=== PATIENT | female | born 1975 | race Caucasian/White ===

== ENCOUNTER 2019-09-01 01:58 | Emergency (ER) | payer SELFPAY ==
[2019-09-01 03:53] LABS: Absolute Lymphocytes (CBC) 1.2 K/uL (0.7-4.9); Basophils % 0.4 % (0-1.3); Hematocrit 42.4 % (36.0-45.0); Lymphocytes % 15.3 % (15.3-44.8); MPV 8.2 fL (7.6-11.3); RBC Red Blood Cell Count 5.06 M/uL (3.86-4.86)
[2019-09-01] MEDS ORDERED: NA CHLORIDE 0.9% 1,000 ML ONE (03:54)
[2019-09-01] MEDS ORDERED: DIAZEPAM 10 MG/2 ML INJ SYRINGE ONE (03:54)
[2019-09-01] MEDS ORDERED: ONDANSETRON 4 MG/2 ML VIAL ONE (03:54)
[2019-09-01] MEDS ORDERED: MAGNESIUM SULFATE 1 gm IVPB 1 GM/100 ML BAG IV ONE (03:54)
[2019-09-01 04:09] LABS: Albumin 4.1 g/dL (3.4-5.0); Bilirubin Total 0.3 mg/dL (0.2-1.0); Potassium 3.3 mmol/L (3.5-5.1); Protein, Total 8.3 g/dL (6.4-8.2)
--- NOTE | 2019-09-01 04:24 | EDPHYS ---
Physician Documentation [facility] Name: Judy Oquendo Age: 44 yrs Sex: Female : 1975 Arrival Date: 09/01/2019 Time: 01:59 Bed 16 Private MD: ED Physician Stephanie Danielle HPI: 08/31 03:46 This 44 yrs old Female presents to ER via EMS with complaints of ma2 Nausea/Vomiting. 03:46 The patient presents to the emergency department with nausea, vomiting. Onset: The ma2 symptoms/episode began/occurred gradually, 2 day(s) ago. Associated signs and symptoms: Pertinent negatives: belching, diarrhea, flatulence, hematuria. Severity of symptoms: At their worst the symptoms were. The patient has not experienced similar symptoms in the past, The patient has experienced similar episodes in the past. PRODUCTION ROUSTABOUT: 03:05 LMP 08/03/2019 lp1 Historical: - Allergies: 03:05 No Known Allergies; lp1 - Home Meds: 03:05 None [Active]; lp1 - PMHx: 03:05 Depression; Anxiety; lp1 - PSHx: 03:05 Appendectomy; lp1 - Immunization history:: Adult Immunizations up to date. - Social history:: Smoking status: Patient reports the use of cigarette tobacco products, denies chronic smoking, but will smoke occasionally, Patient/guardian denies using alcohol, street drugs, The patient lives with family. - Family history:: not pertinent. ROS: 03:46 Constitutional: Negative for fever, chills, and weight loss. ma2 03:46 All other systems are negative. Exam: 03:46 Constitutional: This is a well developed, well nourished patient who is awake, alert, ma2 and in no acute distress. Chest/axilla: Normal chest wall appearance and motion. Nontender with no deformity. No lesions are appreciated. Cardiovascular: Regular rate and rhythm with a normal S1 and S2. No gallops, murmurs, or rubs. Normal PMI, no JVD. No pulse deficits. Respiratory: Lungs have equal breath sounds bilaterally, clear to auscultation and percussion. No rales, rhonchi or wheezes noted. No increased work of breathing, no retractions or nasal flaring. Abdomen/GI: Soft, non-tender, with normal bowel sounds. No distension or tympany. No guarding or rebound. No evidence of tenderness throughout. Neuro: Awake and alert, GCS 15, oriented to person, place, time, and situation. Cranial nerves II-XII grossly intact. Motor strength 5/5 in all extremities. Sensory grossly intact. Cerebellar exam normal. Normal gait. Vital Signs: 03:01 BP 120 / 94; Pulse 67; Resp 18; Temp 98.5(O); Pulse Ox 99% on R/A; Weight 56.7 kg (R); lp1 Height 5 ft. 5 in. (165.10 cm); Pain 9/10; 04:00 BP 120 / 96; Pulse 70; Resp 18; Pulse Ox 96% on R/A; wh 05:00 BP 125 / 93; Pulse 67; Resp 16; Pulse Ox 100% on R/A; wh 06:15 BP 106 / 84; Pulse 76; Resp 16; Pulse Ox 98% ; wh 10:30 BP 117 / 79; Pulse 74; Resp 16; Pulse Ox 100% on R/A; rb1 03:01 Body Mass Index 20.80 (56.70 kg, 165.10 cm) lp1 MDM: 03:06 Patient medically screened. ma2 03:25 ED course: no experience aware shows no drug seeking hx . ma2 03:46 Differential diagnosis: gastritis, appendicitis, viral gastroenteritis, gastroenteritis.ma2 04:24 Data reviewed: vital signs, nurses notes, shelter records, diagnostic data from [facility] outside facility. Counseling: I had a detailed discussion with the patient and/or guardian regarding: the historical points, exam findings, and any diagnostic results supporting the discharge/admit diagnosis, the presence of at least one elevated blood pressure reading (>120/80) during this emergency department visit, radiology results, the need for outpatient follow up. Medical screen evaluation completed. EMTALA emergency medical condition absent. Response to treatment: the patient's symptoms have markedly improved after treatment. 08/31 03:24 Order name: CMP; Complete Time: 04:18 ma2 08/31 03:24 Order name: CBC with Diff; Complete Time: 03:50 ma2 08/31 03:47 Order name: Lipase; Complete Time: 04:18 ma2 08/31 07:06 Order name: Diet Regular; Complete Time: 07:06 lp1 Administered Medications: 03:51 Drug: NS 0.9% 1000 ml Route: IV; Rate: 1 bolus; Site: left forearm; 05:02 Follow up: Response: No adverse reaction; IV Status: Completed infusion 03:53 Drug: Magnesium Sulfate 1 grams Route: IVPB; Infused Over: 1 hrs; Site: left forearm; 05:02 Follow up: Response: No adverse reaction; IV Status: Completed infusion 03:55 Drug: Valium 10 mg Route: IVP; Site: left forearm; 05:02 Follow up: Response: No adverse reaction; Marked relief of symptoms; RASS: Alert and Calm (0) 03:57 Drug: Zofran (Ondansetron) 4 mg Route: IVP; Site: left forearm; 05:01 Follow up: Response: No adverse reaction; Nausea is decreased Disposition: 09/01/19 04:24 Discharged to Home. Impression: Nausea and vomiting. - Condition is Stable. - Discharge Instructions: Nausea and Vomiting, Adult, [id number]. - Prescriptions for Valium 10 mg Oral Tablet - take 1 tablet by ORAL route every 8 hours As needed; 6 tablet. Zofran 4 mg Oral Tablet - take 1 tablet by ORAL route every 12 hours As needed; 20 tablet. - Medication Reconciliation Form, Thank You Letter, Antibiotic Education, Prescription Opioid Use form. - Follow up: Private Physician; When: Tomorrow; Reason: Continuance of care. Signatures: Dispatcher [employer] EDMS Nazia Brink RN RN lp1 Jenae Sanabria RN RN rb1 Mary Rg Stephanie Danielle MD MD ma2 Corrections: (The following items were deleted from the chart) 10:57 04:24 09/01/2019 04:24 Discharged to Home. Impression: Nausea and vomiting. Condition rb1 is Stable. Prescriptions for Valium 10 mg Oral Tablet - take 1 tablet by ORAL route every 8 hours As needed; 6 tablet, Zofran 4 mg Oral Tablet - take 1 tablet by ORAL route every 12 hours As needed; 20 tablet. and Forms are Medication Reconciliation Form, Thank You Letter, Antibiotic Education, Prescription Opioid Use. Follow up: Private Physician; When: Tomorrow; Reason: Continuance of care. ma2
--- NOTE | 2019-09-01 04:24 | ER ---
Nurse's Notes [facility] Name: Judy Oquendo Age: 44 yrs Sex: Female : 1975 Arrival Date: 09/01/2019 Time: 01:59 Bed 16 Private MD: Diagnosis: Nausea and vomiting Presentation: 08/31 03:01 Chief complaint: EMS states: Called for patient feeling like she is detoxing; Complaint lp1 of N/V, chills, body aches, headache, unable to sleep; States taking Klonopin TID at home, ran out 3 days ago. Coronavirus screen: The patient has NOT traveled to a country currently being monitored by the [facility] within the last 14 days. The patient has NOT had contact with any known and/or suspected case of coronavirus. Ebola Screen: No symptoms or risks identified at this time. Initial Sepsis Screen: Does the patient meet any 2 criteria? No. Patient's initial sepsis screen is negative. Does the patient have a suspected source of infection? No. Patient's initial sepsis screen is negative. Risk Assessment: Do you want to hurt yourself or someone else? Patient reports no desire to harm self or others. 03:01 Method Of Arrival: EMS: [facility] lp1 03:01 Acuity: LESLIE 3 lp1 03:02 Onset of symptoms is unknown. LOCKST[employer]EV[employer]KER: 03:05 LMP 08/03/2019 lp1 Historical: - Allergies: 03:05 No Known Allergies; lp1 - Home Meds: 03:05 None [Active]; lp1 - PMHx: 03:05 Depression; Anxiety; lp1 - PSHx: 03:05 Appendectomy; lp1 - Immunization history:: Adult Immunizations up to date. - Social history:: Smoking status: Patient reports the use of cigarette tobacco products, denies chronic smoking, but will smoke occasionally, Patient/guardian denies using alcohol, street drugs, The patient lives with family. - Family history:: not pertinent. Screenin:05 Abuse screen: Denies threats or abuse. Denies injuries from another. Nutritional lp1 screening: No deficits noted. Tuberculosis screening: No symptoms or risk factors identified. Fall Risk None identified. Assessment: 03:00 General: Appears in no apparent distress. Behavior is calm, cooperative, appropriate wh for age. Pain: Denies pain. Neuro: Level of Consciousness is awake, alert, obeys commands, Oriented to person, place, time, situation, Appropriate for age. Cardiovascular: Heart tones S1 S2. Respiratory: Airway is patent Respiratory effort is even, unlabored, Respiratory pattern is regular, symmetrical, Breath sounds are clear bilaterally. GI: Abdomen is flat, non-distended, Bowel sounds present X 4 quads. Abd is soft and non tender X 4 quads. Reports nausea, vomiting. : No signs and/or symptoms were reported regarding the genitourinary system. EENT: No signs and/or symptoms were reported regarding the EENT system. Derm: Skin is intact, is healthy with good turgor, Skin is pink, warm \T\ dry. normal. Musculoskeletal: Circulation, motion, and sensation intact. 04:00 Reassessment: Patient appears in no apparent distress at this time. No changes from previously documented assessment. Patient and/or family updated on plan of care and expected duration. Pain level reassessed. Patient is alert, oriented x 3, equal unlabored respirations, skin warm/dry/pink. Patient states feeling better. Patient states symptoms have improved. 04:58 Reassessment: Patient appears in no apparent distress at this time. No changes from previously documented assessment. Patient and/or family updated on plan of care and expected duration. Pain level reassessed. Patient is alert, oriented x 3, equal unlabored respirations, skin warm/dry/pink. Pt still little bit drowsy, notified provider instructed to keep the Pt sleeping for a while then DC later Patient states feeling better. Patient states symptoms have improved. 06:10 Reassessment: Patient appears in no apparent distress at this time. No changes from previously documented assessment. Patient and/or family updated on plan of care and expected duration. Pain level reassessed. Patient is alert, oriented x 3, equal unlabored respirations, skin warm/dry/pink. Pt still very drowsy, VSS, Pt easily awakens, states she hasn't slept in three days, notified charge nurse. Pt will be DC once more awake, provider notified. 07:00 Reassessment: Patient appears in no apparent distress at this time. Pt. is resting with rb1 eyes closed, respirations even, unlabored. Call light within reach. 07:28 Reassessment: Ambulated pt. in the hallway, gait is unsteady and she is drowsy. will rb1 continue to monitor until the pt is more alert. 08:22 Reassessment: Pt. was given a breakfast tray, she drank some of her juice, but is still rb1 very drowsy. will continue to monitor. 09:17 Reassessment: Patient appears in no apparent distress at this time. Discharge pending rb1 due to the pt. being too drowsy to be discharged. She has nobody to call for transportation home. 10:17 Reassessment: Patient appears in no apparent distress at this time. Patient and/or rb1 family updated on plan of care and expected duration. Pain level reassessed. Patient is alert, oriented x 3, equal unlabored respirations, skin warm/dry/pink. Patient denies pain at this time. 10:45 Reassessment: Patient appears in no apparent distress at this time. Pt. is more alert rb1 and transportation has been called. Vital Signs: 03:01 BP 120 / 94; Pulse 67; Resp 18; Temp 98.5(O); Pulse Ox 99% on R/A; Weight 56.7 kg (R); lp1 Height 5 ft. 5 in. (165.10 cm); Pain 9/10; 04:00 BP 120 / 96; Pulse 70; Resp 18; Pulse Ox 96% on R/A; wh 05:00 BP 125 / 93; Pulse 67; Resp 16; Pulse Ox 100% on R/A; wh 06:15 BP 106 / 84; Pulse 76; Resp 16; Pulse Ox 98% ; wh 10:30 BP 117 / 79; Pulse 74; Resp 16; Pulse Ox 100% on R/A; rb1 03:01 Body Mass Index 20.80 (56.70 kg, 165.10 cm) lp1 ED Course: 01:59 Patient arrived in ED. wh 03:00 Patient has correct armband on for positive identification. Bed in low position. Call light in reach. Side rails up X 1. Pulse ox on. NIBP on. 03:03 Triage completed. lp1 03:03 Arm band placed on. lp1 03:06 Stephanie Danielle MD is Attending Physician. ma2 03:20 Inserted saline lock: 20 gauge in left antecubital area, using aseptic technique. Blood wh collected. 03:25 Mary Rg is Primary Nurse. 05:00 No provider procedures requiring assistance completed. IV discontinued, intact, wh bleeding controlled, No redness/swelling at site. Administered Medications: 03:51 Drug: NS 0.9% 1000 ml Route: IV; Rate: 1 bolus; Site: left forearm; 05:02 Follow up: Response: No adverse reaction; IV Status: Completed infusion 03:53 Drug: Magnesium Sulfate 1 grams Route: IVPB; Infused Over: 1 hrs; Site: left forearm; 05:02 Follow up: Response: No adverse reaction; IV Status: Completed infusion 03:55 Drug: Valium 10 mg Route: IVP; Site: left forearm; 05:02 Follow up: Response: No adverse reaction; Marked relief of symptoms; RASS: Alert and wh Calm (0) 03:57 Drug: Zofran (Ondansetron) 4 mg Route: IVP; Site: left forearm; 05:01 Follow up: Response: No adverse reaction; Nausea is decreased Outcome: 04:24 Discharge ordered by . caty 05:01 Discharged to home ambulatory. 05:01 Condition: stable 05:01 Discharge instructions given to patient, Instructed on discharge instructions, follow up and referral plans. no drinking with medication, no driving heavy equipment, medication usage, POC Demonstrated understanding of instructions, follow-up care, medications, POC Prescriptions given X 2. 10:57 Patient left the ED. rb1 Signatures: Nazia Brink RN RN lp1 Jenae Sanabria RN RN rb1 Mary Rg Stephanie Danielle MD MD ma2 Corrections: (The following items were deleted from the chart) 58 01:30 General: Appears in no apparent distress. Behavior is calm, cooperative, appropriate for age, :58 01:30 Pain: Denies pain. [facility] :58 01:30 Neuro: Level of Consciousness is awake, alert, obeys commands, Oriented to person, place, time, situation, Appropriate for age :58 01:30 Cardiovascular: Heart tones S1 S2 [facility] :58 01:30 Respiratory: Airway is patent Respiratory effort is even, unlabored, Respiratory pattern is regular, symmetrical, Breath sounds are clear bilaterally. :58 01:30 GI: Abdomen is flat, non-distended, Bowel sounds present X 4 quads. Abd is soft wh and non tender X 4 quads. Reports nausea, vomiting, 01:30 : No signs and/or symptoms were reported regarding the genitourinary system. [facility] 01:30 EENT: No signs and/or symptoms were reported regarding the EENT system. [facility] 01:30 Derm: Skin is intact, is healthy with good turgor, Skin is pink, warm \T\ dry. wh normal, 01:30 Musculoskeletal: Circulation, motion, and sensation intact. [facility] 05:11 04:58 Reassessment: Patient appears in no apparent distress at this time. No changes wh from previously documented assessment. Patient and/or family updated on plan of care and expected duration. Pain level reassessed. Patient is alert, oriented x 3, equal unlabored respirations, skin warm/dry/pink. Patient states feeling better. Patient states symptoms have improved.
[2019-09-01 11:06] VITALS: TEMP 98.5
[2019-09-01 11:10] VITALS: BP 106/84; O2SAT 98
== END 2019-09-01 10:57 | disposition home or self-care (01) ==
LOC: ER 01:58
DX: R11.2 Nausea with vomiting, unspecified (principal); Z72.0 Tobacco use
CPT/HCPCS: 36415; 80053; 83690; 85025; 96365; 96375; 99284; J2405; J3360; J3475; J7030